=== PATIENT | female | born 1965 | race African-American/Black ===

== ENCOUNTER 2018-11-24 13:24 | Emergency (ER) | payer MEDICAID, OTHER ==
[~2018-11-24] VITALS: Ht 172.7 cm; Wt 71.0 kg
[2018-11-24] MEDS ORDERED: IBUPROFEN 600MG TABLET PO ONE (15:00)
[2018-11-24 15:29] VITALS: BP 130/72
== END 2018-11-24 15:30 | disposition home or self-care (01) ==
LOC: ER 14:23
DX: B02.9 Zoster without complications (principal); Z98.890 Other specified postprocedural states
CPT/HCPCS: 99283